=== PATIENT | female | born 1965 | race Caucasian/White ===

== ENCOUNTER 2017-02-25 17:02 | Emergency (ER) | payer BC ==
[~2017-02-25] VITALS: Ht 180.3 cm; Wt 70.3 kg
[2017-02-25 17:15] VITALS: BP 171/96
--- NOTE | 2017-02-25 17:31 | PHYS DOC ---
General Chief Complaint: LACERATION/AVULSION Stated Complaint: FINGER LAC Time Seen by MD: 17:27 Source: patient Exam Limitations: no limitations Problems: History of Present Illness Initial Comments Patient is a 51-year-old female who comes in the ED complaining of left thumb laceration. Patient states that last night about 7 PM she was using a kitchen knife and accidentally cut a small flap of skin on her left thumb. It bled initially but stopped with direct pressure, it's painful when manipulated but she has no pain at rest. She denies numbness tingling weakness or radiating symptoms. The flap is very superficial at the distal aspect of the appendage. She was going to manage it at home however her friends convinced her to come to the ED for evaluation. Onset: yesterday Severity: mild Pain/Injury Location: left thumb Method of Injury: incised Modifying Factors: worse with jarring, worse with movement, improves with rest Allergies: Coded Allergies: No Known Drug Allergies (Unverified , 02/25/17) Past Medical History Medical History: no pertinent history Surgical History: noncontributory Social History Smoker: non-smoker Alcohol: none Drugs: none Review of Systems Constitutional: denies chills, denies fever Respiratory: denies cough, denies shortness of breath Cardiovascular: denies chest pain, denies palpitations Gastrointestinal: denies nausea, denies vomiting Musculoskeletal: see HPI, denies back pain, denies joint swelling, denies neck pain Skin: see HPI Psychiatric/Neurological: denies numbness, denies paresthesia, denies weakness Physical Exam General Appearance: WD/WN, no apparent distress HEENT: PERRL/EOMI, normal ENT inspection Neck: non-tender, supple Cardiovascular/Respiratory: normal peripheral pulses, no respiratory distress Back: no CVA tenderness, no vertebral tenderness Hand: soft tissue tenderness (at the distal left thumb there is a very superficial 0.5 cm flap-type laceration, there is no active bleeding swelling or erythema there is mild tenderness which is appropriate. No nailbed involvement or suspected bony involvement.) Neurologic/Tendon: normal sensation, normal motor functions, normal tendon functions, responds to pain, no evidence tendon injury Psychiatric: alert, oriented x 3 Skin: normal color, warm/dry (left thumb as above) Orders, Labs, Meds The patient was advised that too much time has elapsed, the flap is likely nonviable. Wound would heal by secondary intention. The wound was cleansed by ED staff, sterile dressing and metal finger splint were applied. Extremity neurovascularly intact after splint applied. She departure for wound care instructions. Departure Time of Disposition: 17:28 Disposition: 01 HOME, SELF-CARE Diagnosis: left thumb laceration Condition: GOOD Patient Instructions: Fingertip Laceration Additional Instructions: Wear the metal finger splint as needed for symptom control. [id number] Tylenol and/or ibuprofen as needed for symptom control. Prescription: Cephalexin 500 mg Keep wound covered with sterile dressing until healed. Wash wound twice daily with soap and warm water, blot dry. Change dressing after each wash. Follow-up with your doctor in 3-5 days for a wound check. Return to the ED with new or changing symptoms AUGUSTO CAMARILLO DO Feb 25, 2017 17:31
== END 2017-02-25 17:42 | disposition home or self-care (01) ==
LOC: ER 17:02
DX: S61.012A Laceration without foreign body of left thumb without damage to nail, initial encounter (principal); W26.0XXA Contact with knife, initial encounter; Y93.89 Activity, other specified; Y99.8 Other external cause status; Y92.89 Other specified places as the place of occurrence of the external cause
CPT/HCPCS: 29125; 99283-25